=== PATIENT | female | born 1950 | race Caucasian/White ===

== ENCOUNTER 2021-10-23 09:01 | Day surgery (SDC) | payer MEDICARE, OTHER ==
[2021-10-23] VITALS (9 sets, daily range): BP systolic 125–154; BP diastolic 59–92
[~2021-10-23] VITALS: Ht 152.4 cm; Wt 63.5 kg
[2021-10-23] MEDS ORDERED: diphenhydrAMINE 25mg capsule PO PRN (09:20)
[2021-10-23] MEDS ORDERED: ROSU40TA22 PO (09:37)
[2021-10-23] MEDS ORDERED: DILT-35 PO (09:37)
[2021-10-23] MEDS ORDERED: CHOL500050 PO (09:40)
[2021-10-23] MEDS ORDERED: UBID200C18 PO (09:40)
[2021-10-23] MEDS ORDERED: MULT-1085 PO (09:46)
[2021-10-23] MEDS ORDERED: OMEP20TA23 PO (09:46)
[2021-10-23] MEDS ORDERED: POTA-208 PO (09:46)
[2021-10-23] MEDS ORDERED: OLME1TAB24 PO (09:46)
[2021-10-23] MEDS ORDERED: ASPI-1071 PO ×2 (09:47→09:48)
[2021-10-23 10:04] LABS: BASOPHILS # (AUTO) 0.1 X10'3 (0-0.2); BASOPHILS % (AUTO) 1.2 % (0-1); EOSINOPHILS # (AUTO) 0.3 X10'3 (0-0.9); EOSINOPHILS % (AUTO) 3.8 % (0-6); HEMATOCRIT 42.6 % (35.0-45.0); HEMOGLOBIN 14.4 g/dl (12.0-16.0); LYMPHOCYTES % (AUTO) 38.2 % (21-51); MEAN CORPUSCULAR HEMOGLOBIN 30.1 PG (27.0-31.0); MEAN CORPUSCULAR HGB CONC 33.7 g/dL (33.0-36.5); MEAN CORPUSCULAR VOLUME 89.2 FL (78-98); MEAN PLATELET VOLUME 7.7 FL (7.4-10.4); MONOCYTES # (AUTO) 0.8 X10'3 (0-0.9); MONOCYTES % (AUTO) 10.5 % (2-12); NEUTROPHILS # (AUTO) 3.7 X10'3 (1.8-7.7); NEUTROPHILS % (AUTO) 46.3 % (42-75); PLATELET COUNT 271 X10'3 (140-440); RED BLOOD COUNT 4.78 X10'6 (4.20-5.60); RED CELL DISTRIBUTION WIDTH 13.9 % (11.5-14.5); WHITE BLOOD COUNT 7.9 X10'3 (4.5-11.0)
[2021-10-23] MEDS ORDERED: fentaNYL/PF 50MCG/1 ML 2ML syringe ONE (10:12)
[2021-10-23] MEDS ORDERED: iohexol 350MG/ML 100ml bottle IV ONE (10:12)
[2021-10-23] MEDS ORDERED: LIDOcaine 1%/PF 5ML 10 MG/ML VIAL ONE (10:12)
[2021-10-23] MEDS ORDERED: midazolam 1 mg/ML 2ml injection ONE ×2 (10:12→10:59)
[2021-10-23] MEDS ORDERED: verapamil 2.5 mg/ml inj IV ONE (10:12)
[2021-10-23] MEDS ORDERED: heparin 1,000unit/ml 10ml vial 10 ML ONE (10:12)
[2021-10-23] MEDS ORDERED: nitroGLYCERIN-Tridil 50MG/D5W 0 ML IV ONE (10:12)
[2021-10-23 10:21] LABS: ALBUMIN 4.5 G/DL (3.4-5.0); ANION GAP 13 (8-16); BLOOD UREA NITROGEN 13 MG/DL (7-18); BUN/CREATININE RATIO 16.5 (6.6-38.0); CALCIUM 9.5 MG/DL (8.5-10.1); CHLORIDE 99 MMOL/L (99-107); CREATININE 0.79 MG/DL (0.40-0.90); GLUCOSE 94 MG/DL (70-104); MAGNESIUM 1.7 MG/DL (1.5-2.4); POTASSIUM 3.5 MMOL/L (3.5-5.1); SODIUM 138 MMOL/L (135-145); eGFR 72 ML/MIN
[2021-10-23] MEDS ORDERED: normal saline 1000ml 1,000 ML IV SCH (12:05)
[2021-10-23] MEDS ORDERED: HYDROcodone/acetaminophen 5mg/325mg tablet PO PRN (12:05)
[2021-10-23] MEDS ORDERED: HYDROcodone/acetaminophen 10/325mg tab PO PRN (12:05)
[2021-10-23] MEDS ORDERED: ondansetron/PF 4mg/2ml inj IV PRN (12:05)
[2021-10-23] MEDS ORDERED: proCHLORperazine 10 MG/2 ml inj IV PRN (12:05)
[2021-10-23] MEDS ORDERED: acetaminophen 325mg tablet PO PRN (12:05)
--- NOTE | 2021-10-23 13:04 | NUR ---
Report to Eileen MENDOZA. (R) groin site remains stable, VSS.
--- NOTE | 2021-10-23 13:05 | NUR ---
recd. report from REJI Bullard, GUNNER, R elke arndt [facility], pt is in stable condition at this and at pt's bedside.
== END 2021-10-23 15:05 | disposition home or self-care (01) ==
LOC: SSTAY O 09:01
PROVIDERS: ATTEND Internal Medicine Cardiovascular Disease
DX: I25.118 Atherosclerotic heart disease of native coronary artery with other forms of angina pectoris (principal); R07.9 Chest pain, unspecified; I25.82 Chronic total occlusion of coronary artery; E78.5 Hyperlipidemia, unspecified; K21.9 Gastro-esophageal reflux disease without esophagitis; I10 Essential (primary) hypertension; Z95.1 Presence of aortocoronary bypass graft; Z79.899 Other long term (current) drug therapy; Z98.890 Other specified postprocedural states; Z88.8 Allergy status to other drugs, medicaments and biological substances
CPT/HCPCS: 36415; 80048; 83735; 85025; 85610; 93005; 93459; 99152; 99153; C1760; C1769; C1894; J1644; J2250; J3010; J3490; J7030; Q0163; Q9967; A4620; A6258; A6449

== ENCOUNTER 2022-04-02 10:41 | Day surgery (SDC) | payer MEDICARE, OTHER ==
[~2022-04-02] VITALS: Ht 152.4 cm; Wt 62.4 kg
[2022-04-02] VITALS (9 sets, daily range): BP systolic 107–140; BP diastolic 56–75
[~2022-04-02 10:41] MED LIST: ASPI-1071 PO; CHOL500050 PO; DILT-35 PO; MULT-1085 PO; OLME-40 PO; OMEP20TA23 PO; POTA-208 PO; ROSU40TA22 PO; UBID200C18 PO
[2022-04-02] MEDS ORDERED: verapamil 2.5 mg/ml inj IV ONE (10:57)
[2022-04-02] MEDS ORDERED: fentaNYL/PF 50MCG/1 ML 2ML syringe ONE (10:58)
[2022-04-02] MEDS ORDERED: midazolam 1 mg/ML 2ml injection ONE ×2 (10:58→12:11)
[2022-04-02] MEDS ORDERED: iohexol 350MG/ML 100ml bottle IV ONE ×2 (10:58→12:32)
[2022-04-02] MEDS ORDERED: heparin 1,000unit/ml 10ml vial 10 ML ONE (10:58)
[2022-04-02] MEDS ORDERED: diphenhydrAMINE 25mg capsule PO PRN (11:15)
[2022-04-02] MEDS ORDERED: normal saline 1,000 ML IV SCH (11:15)
[2022-04-02] MEDS ORDERED: LIDOcaine 1% 30ml preserv. free vial ONE (11:26)
[2022-04-02] MEDS ORDERED: CLOP75TA34 PO (11:46)
[2022-04-02] MEDS ORDERED: ISOS30TA84 PO (11:46)
[2022-04-02] MEDS ORDERED: potassium chloride PO (11:46)
[2022-04-02] MEDS ORDERED: ATOR40TA72 PO (11:46)
--- NOTE | 2022-04-02 11:57 | NUR ---
RN unable to draw labs off of PIV. Patient to clinical laboratory technician with no labs pending. catheterization laboratory technician notified Dr. Hunt.
[2022-04-02] MEDS ORDERED: ondansetron/PF 4mg/2ml inj IV PRN (13:20)
[2022-04-02] MEDS ORDERED: proCHLORperazine 10 MG/2 ml inj IV PRN (13:20)
[2022-04-02] MEDS ORDERED: OXAZEpam 15mg capsule PO PRN (13:20)
[2022-04-02] MEDS ORDERED: normal saline 1000ml 1,000 ML IV SCH (13:20)
== END 2022-04-02 16:30 | disposition home or self-care (01) ==
LOC: SSTAY O 10:41
PROVIDERS: ATTEND Internal Medicine Cardiovascular Disease
DX: G45.9 Transient cerebral ischemic attack, unspecified (principal); I25.118 Atherosclerotic heart disease of native coronary artery with other forms of angina pectoris; E78.5 Hyperlipidemia, unspecified; K21.9 Gastro-esophageal reflux disease without esophagitis; I10 Essential (primary) hypertension; F10.90 Alcohol use, unspecified, uncomplicated; Z82.49 Family history of ischemic heart disease and other diseases of the circulatory system; Z90.710 Acquired absence of both cervix and uterus; Z98.51 Tubal ligation status; Z98.890 Other specified postprocedural states; Z95.1 Presence of aortocoronary bypass graft; Z79.82 Long term (current) use of aspirin; Z79.899 Other long term (current) drug therapy; Z88.8 Allergy status to other drugs, medicaments and biological substances
CPT/HCPCS: 36223; 36225; 93005; 99152; 99153; C1760; C1769; C1894; J1644; J2250; J3010; J3490; J7030; Q9967; 36222; A4620; A6258